=== PATIENT | female | born 1990 | race Caucasian/White ===

== ENCOUNTER 2017-11-24 19:17 | Emergency (ER) | END 2017-11-24 22:48 | disposition home or self-care (01) ==

== ENCOUNTER → 2018-04-06 | Outpatient (CLI) | END | disposition home or self-care (01) ==

== ENCOUNTER → 2018-04-11 | Outpatient (CLI) | END | disposition home or self-care (01) ==

== ENCOUNTER → 2018-05-18 | Outpatient (CLI) | END | disposition home or self-care (01) ==

== ENCOUNTER → 2018-06-20 | Outpatient (CLI) | END | disposition home or self-care (01) ==

== ENCOUNTER → 2018-07-31 | Outpatient (CLI) | END | disposition home or self-care (01) ==

== ENCOUNTER 2018-08-09 15:19 | Emergency (ER) | END 2018-08-09 16:52 | disposition home or self-care (01) ==

== ENCOUNTER 2018-08-09 16:44 | Outpatient (CLI) | END 2018-08-09 20:15 | disposition home or self-care (01) ==

== ENCOUNTER → 2018-08-10 | Outpatient (CLI) | END | disposition home or self-care (01) ==

== ENCOUNTER 2018-09-02 11:58 | Outpatient (CLI) | payer BC ==
[~2018-09-02] VITALS: Ht 165.1 cm; Wt 101.2 kg
[2018-09-02 13:46] VITALS: Ht 165.1 cm; Wt 101.2 kg
[2018-09-02 13:47] VITALS: BP 136/70; PULSE 96; RESP 18
== END 2018-09-02 14:58 | disposition home or self-care (01) ==
LOC: OBT 11:58 → L-D 11:58 → OBT 14:58
PROVIDERS: ATTEND Obstetrics & Gynecology
DX: O26.892 Other specified pregnancy related conditions, second trimester (principal); R23.3 Spontaneous ecchymoses; Z3A.26 26 weeks gestation of pregnancy
CPT/HCPCS: G0463

== ENCOUNTER 2018-09-02 14:59 | Emergency (ER) | payer BC ==
[~2018-09-02] VITALS: Wt 90.0 kg
[2018-09-02 15:02] VITALS: BP 132/71; PULSE 78; RESP 18
--- NOTE | 2018-09-02 16:41 | ERD ---
ER Documentation Chief Complaint Chief Complaint SKIN RASH TO FACE STARTED THIS MORNING 26 WEEKS LATER HPI 28-year-old female, at 26 weeks , already seen at L&D triage, presents to the emergency department, complaining of petechial facial rash after holding her head against her mouth while the patient was trying to avoid vomiting. The patient denies abdominal pain, no vaginal bleeding, no vaginal leakage, no concerns or complaints regarding her . ROS All systems reviewed and are negative except as per history of present illness. Medications Home Meds No Active Prescriptions or Reported Meds Allergies Allergies: Coded Allergies: No Known Allergy (Unverified , 09/02/18) PMhx/Soc Hx Miscellaneous Medical Probl: Yes (, ab1) Hx Alcohol Use: No Hx Substance Use: No Hx Tobacco Use: No Smoking Status: Never smoker Physical Exam Vitals Vital Signs Date Temp Pulse Resp B/P (MAP) Pulse Ox O2 O2 Flow FiO2 Time Delivery Rate 09/02/18 98.1 78 18 132/71 99 15:02 (91) Physical Exam Const: No acute distress Head: Atraumatic Eyes: Normal Conjunctiva ENT: Normal External Ears, Nose and Mouth. Neck: Full range of motion. No meningismus. Resp: Clear to auscultation bilaterally Cardio: Regular rate and rhythm, no murmurs Abd: Soft, non tender, non distended. Normal bowel sounds Skin: Multiple petechia in facial Malar area. back: No midline or flank tenderness Ext: No cyanosis, or edema Neur: Awake and alert Psych: Normal Mood and Affect Result Diagram: 09/02/18 1546 09/02/18 1546 Results 24 hrs Laboratory Tests Test 09/02/18 15:46 09/02/18 15:47 White Blood Count 8.6 10^3/ul Red Blood Count 3.13 10^6/ul Hemoglobin 9.6 g/dl Hematocrit 29.0 % Mean Corpuscular Volume 92.7 fl Mean Corpuscular Hemoglobin 30.7 pg Mean Corpuscular Hemoglobin Concent 33.1 g/dl Red Cell Distribution Width 11.9 % Platelet Count 287 10^3/UL Mean Platelet Volume 10.0 fl Immature Granulocytes % 0.600 % Neutrophils % 69.1 % Lymphocytes % 23.5 % Monocytes % 6.4 % Eosinophils % 0.2 % Basophils % 0.2 % Nucleated Red Blood Cells % 0.0 /100WBC Immature Granulocytes # 0.050 10^3/ul Neutrophils # 6.0 10^3/ul Lymphocytes # 2.0 10^3/ul Monocytes # 0.6 10^3/ul Eosinophils # 0.0 10^3/ul Basophils # 0.0 10^3/ul Nucleated Red Blood Cells # 0.0 10^3/ul Sodium Level 139 mmol/L Potassium Level 3.4 mmol/L Chloride Level 107 mmol/L Carbon Dioxide Level 26 mmol/L Anion Gap 6 Blood Urea Nitrogen 7 mg/dl Creatinine 0.47 mg/dl Est Glomerular Filtrat Rate mL/min > 60 mL/min Glucose Level 109 mg/dl Calcium Level 8.7 mg/dl Total Bilirubin 0.1 mg/dl Direct Bilirubin 0.00 mg/dl Indirect Bilirubin 0.1 mg/dl Aspartate Amino Transf (AST/SGOT) 18 IU/L Alanine Aminotransferase (ALT/SGPT) 14 IU/L Alkaline Phosphatase 78 IU/L Total Protein 6.3 g/dl Albumin 3.1 g/dl Globulin 3.20 g/dl Albumin/Globulin Ratio 0.96 Prothrombin Time 13.1 Sec Prothrombin Time Ratio 1.0 INR International Normalized Ratio 0.98 Activated Partial Thromboplast Time 27.5 Sec Procedures/MDM Differential diagnosis include but not limited to: Vascular event, viral exanthema, infectious process, eczema, contact dermatitis, insect bites suspicion for meningococcal rash. Physical examination and clinical presentation consistent most likely with traumatic petechia due to Valsalva maneuver. During the ED course the patient remained stable, no new complaints. Clinical impression discussed with mother who agrees with management. The patient is stable to be treated outpatient and will be discharged home with a Rx for acetaminophen, some side effects of prescribed medications (headache, rash, nausea, vomiting, diarrhea, interactions with other medications) were reviewed. The mother was instructed to follow up with the primary care provider in the next 48h. If symptoms persist, worsen or new symptoms develop, then patient should return to the ED immediately. Instructions explained and given directly by me to the patient with acknowledgment and demonstrated understanding. Disclaimer: Inadvertent spelling and grammatical errors are likely due to EHR/dictation software use and do not reflect on the overall quality of patient care. Also, please note that the electronic time recorded on this note does not necessarily reflect the actual time of the patient encounter. Departure Diagnosis: Primary Impression: Traumatic petechiae Additional Impressions: Rash and other nonspecific skin eruption Purpura associated with Valsalva maneuver Condition: Stable Additional Instructions: Thank you very much for allowing us to participate in your care. Your health and safety is our top priority at [facility]. Call your primary care doctor TOMORROW for an appointment during the next 2-4 days and bring all the information and medications prescribed. Have prescriptions filled and follow precisely the directions on the label. If the symptoms get worse and your provider is unavailable, return to the Emergency Department immediately. GAURI HERNÁNDEZ MD Sep 02, 2018 16:41
--- NOTE | 2018-09-03 21:03 | PN ---
Triage Information Date/Time 09/02/18 serviice rendered time Reason for visit: facial rash Weeks of Gestation 26w2d /Para A1 Diabetes: none Hypertention: none Objective Vital Signs Date Temp Pulse Resp B/P (MAP) Pulse Ox O2 O2 Flow FiO2 Time Delivery Rate 09/02/18 98.1 78 18 132/71 99 15:02 (91) Heart Rate: 140's Contractions: None Results/Medications Result Diagram: 09/02/18 1546 09/02/18 1546 Disposition: Assessment/Plan A IUP 26w2d petechiae on face P to ER for evaluation requested by her OB REBEL VALERIO MD Sep 03, 2018 21:03
== END 2018-09-02 16:53 | disposition home or self-care (01) ==
LOC: FTE 14:59
DX: O9A.212 Injury, poisoning and certain other consequences of external causes complicating pregnancy, second trimester (principal); S00.83XA Contusion of other part of head, initial encounter; D69.2 Other nonthrombocytopenic purpura; O99.112 Other diseases of the blood and blood-forming organs and certain disorders involving the immune mechanism complicating pregnancy, second trimester; X58.XXXA Exposure to other specified factors, initial encounter; Y92.9 Unspecified place or not applicable; Z3A.26 26 weeks gestation of pregnancy
CPT/HCPCS: 36415; 80053; 85025; 85610; 85730; 99283

== ENCOUNTER 2018-11-28 06:30 | Inpatient (IN) | payer BC ==
[~2018-11-28] VITALS: Ht 165.1 cm; Wt 105.6 kg
[2018-11-28 07:00] VITALS: Ht 165.1 cm; Wt 105.6 kg
[2018-11-28] MEDS ORDERED: OXYTOCIN 30 UNITS/LR 500 ML BAG IV ONE (07:00)
[2018-11-28 07:01] VITALS: BP 130/79; PULSE 86; RESP 17
[2018-11-28] MEDS ORDERED: LACTATED RINGER'S 1,000 ML IV SCH (07:02)
[2018-11-28] MEDS ORDERED: OXYTOCIN 30 UNITS/LR 500 ML IV SCH (07:30)
[2018-11-28] MEDS ORDERED: MISOPROSTOL 200 MCG TAB PR PRN ×2 (07:30→10:00)
[2018-11-28] MEDS ORDERED: CARBOPROST 250 MCG INJ IM PRN ×2 (07:30→10:00)
[2018-11-28] MEDS ORDERED: OXYTOCIN 30 UNITS/LR 500 ML IV PRN ×2 (07:30→10:00)
[2018-11-28] MEDS ORDERED: METHYLERGONOVINE 0.2 MG INJ IM PRN ×2 (07:30→10:00)
--- NOTE | 2018-11-28 07:31 | PREAC ---
Date/Time of Note Date/Time of Note DATE: 11/28/18 TIME: Anesthesia Eval and Record Evaluation Time Pre-Procedure Interview DATE: 11/28/18 TIME: : Age 28 Sex female NPO: 8 hrs Preoperative diagnosis IUP Planned procedure Csection Past Medical History Past Medical History: None Surgery & Anesthesia Issues No known issue Meds Anticoagulation: No Beta Bijan within 24 hr: No Reason Beta Bijan not given: Pt. not on B-Bijan No Active Prescriptions or Reported Meds Current Medications Lactated Ringer's 1,000 ml @ 125 mls/hr Q8H IV ; Start 11/28/18 at 07:02; Status UNV Cefazolin Sodium/ Dextrose 50 ml @ 100 mls/hr ONCE IVPB ; Start 11/28/18 at 07:30; Status UNV Oxytocin/Lactated Ringer's 500 ml @ 125 mls/hr POST IV ; Start 11/28/18 at 07:30; Status UNV Oxytocin/Lactated Ringer's 500 ml @ 0 mls/hr ONCE PRN IV .VAGINAL BLEEDING; Start 11/28/18 at 07:30; Status UNV Methylergonovine Maleate (Methergine) 0.2 mg ONCE PRN IM .VAGINAL BLEEDING; Start 11/28/18 at 07:30; Status UNV Carboprost Tromethamine (Hemabate) 250 mcg ONCE PRN IM .VAGINAL BLEEDING; Start 11/28/18 at 07:30; Status UNV Misoprostol (Cytotec) 1,000 mcg ONCE PRN WA .VAGINAL BLEEDING; Start 11/28/18 at 07:30; Status UNV Meds reviewed: Yes Allergies Coded Allergies: No Known Allergy (Unverified , 09/02/18) Allergies Reviewed: Yes Labs/Studies Labs Reviewed: Reviewed by anesthesiologist test: Positive Studies: ECG Pre-procedure Exam Last vitals Vital Signs Date Temp Pulse Resp B/P (MAP) Pulse Ox O2 O2 Flow FiO2 Time Delivery Rate 11/28/18 98.4 86 17 130/79 Room Air 07:01 (96) Airway: Adequate mouth opening, Adequate thyromental dist Mallampati: Mallampati II Teeth: Normal Lung: Normal Heart: Normal ASA Physical Status ASA physical status: 2 Emergency: None Planned Anesthetic Neuraxial: Epidural Planned Pain Management Epidural, Parenteral pain med Pre-operative Attestations Prior to commencing anesthesia and surgery, the patient was re-evaluated, there was verification of: *The patient's identity *The results of appropriate recent lab work and preoperative vital signs *The above evaluation not changing prior to induction *Anesthetic plan, risk benefits, alternative and complications discussed with patient/family; questions answered; patient/family understands, accepts and wishes to proceed. MALLORIE JONES MD Nov 28, 2018 07:31
[2018-11-28] MEDS ORDERED: CEFAZOLIN 2 GM/50 ML (PMX) 50 ML IVPB SCH (08:00)
[2018-11-28] MEDS ORDERED: morphine SULFATE/PF (10 MG/10 ML) INJ ONE (08:06)
[2018-11-28] MEDS ORDERED: ONDANSETRON 4 MG INJ ONE ×2 (08:06→09:34)
[2018-11-28] MEDS ORDERED: OXYTOCIN 10 UNIT INJ ONE (08:06)
[2018-11-28] MEDS ORDERED: PHENYLephrine (100 MCG/ML) 5ML SYG ONE (08:38)
[2018-11-28] MEDS ORDERED: PHENYLephrine (100 MCG/ML) 10ML SYG ONE (09:34)
[2018-11-28] MEDS ORDERED: METOCLOPRAMIDE 10 MG INJ ONE (09:34)
[2018-11-28] MEDS ORDERED: PHENYLephrine 10 MG INJ ONE (09:34)
--- NOTE | 2018-11-28 09:41 | OPR ---
Operative Report Planned Procedure Procedure date Nov 28, 2018 Procedure(s) Repeat Performed by see signature line Patent Leather Sorter: REBEL VALERIO MD Anesthesiologist: MALLROIE JONES MD Pre-procedure diagnosis IUP at 39 weeks. Previous x 1. [id number] Anesthesia Type: Rvmbw1i spinal Post-Procedure Post-procedure diagnosis Same. Findings Viable baby girl weighing 3920 grams or 8# 10 oz, 20" long, and with Apgars of 9/9. Estimated Blood Loss: 500 - 600 mls Specimen(s) none Grafts/Implant(s) none Complication(s) none Pt Condition post procedure: stable Disposition: PACU Procedure Description Under satisfactory spinal anesthesia, the patient was prepped and draped and placed in a supine position, tilted to the left. Pfannenstiel incision was made in an elliptical manner to remove the old scar, and carried through the subcutaneous tissue. Bleeders brought under control with electrocautery. Fascia incised to the length of the incision. Rectus muscles from the fascia, divided midline. Peritoneum exposed, entered through a transverse incision. Transverse incision was made in the lower segment of the uterus. Amniotic sac ruptured. Clear amniotic fluid noted. The head was elevated up through the incision and with fundal pressure was delivered. The mouth and nares were bulb suctioned. The rest of the baby was then easily delivered. The cord was doubly clamped and cut after 30 seconds. The baby was brought to the warmer and the team for immediate attention. The placenta was delivered manually intact. Uterine cavity was cleaned with wet sponge and drainage established. Uterus closed in 2 layers using #1 chromic in continuous fashion. Peritoneal cavity irrigated with warm saline. Sponge, needle and instrument count reported to be correct. Abdominal peritoneum closed with 2-0 Chromic continuously. Rectus muscle approximated with the same suture. Fascia closed with 0-Vicryl. The subcutaneous tissue was irrigated and closed with 2-0 Chromic and skin was closed with 3-0 Monocryl in a subcuticular stitch. Steristrips with Mastosol were placed. Estimated blood loss 500 mL. Urine was clear. REN GAITAN MD Nov 28, 2018 09:41
--- NOTE | 2018-11-28 09:54 | PAC ---
Date/Time of Note Date/Time of Note DATE: 11/28/18 TIME: 09:52 Post-Anesthesia Notes Post-Anesthesia Note Last documented vital signs Vital Signs Date Temp Pulse Resp B/P (MAP) Pulse Ox O2 O2 Flow FiO2 Time Delivery Rate 11/28/18 98.4 86 17 130/79 Room Air 07:01 (96) Activity: WNL Respiratory function: WNL Cardiovascular function: WNL Mental status: Baseline Pain reasonably controlled: Yes Hydration appropriate: Yes Nausea/Vomiting absent: Yes Comments BP:112/56, P:78, Spo2:100%, T:98,8 MALLORIE JONES MD Nov 28, 2018 09:54
[2018-11-28] MEDS ORDERED: NACL 0.9% 3 ML SYG IV SCH (10:00)
[2018-11-28] MEDS ORDERED: OXYCODONE/ACETAMINOPHEN (5/325) TAB PO PRN (10:00)
[2018-11-28] MEDS ORDERED: NALOXONE (0.4 MG/ML) INJ IV PRN (10:00)
[2018-11-28] MEDS ORDERED: DIPHENHYDRAMINE 50 MG INJ IV PRN (10:00)
[2018-11-28] MEDS ORDERED: ONDANSETRON 4 MG INJ IV PRN (10:00)
[2018-11-28] MEDS ORDERED: morphine 2 MG INJ IV PRN (10:00)
[2018-11-28] MEDS: OXYTOCIN 30 UNITS/LR 500 ML IV SCH ×2 (10:40→19:28)
[2018-11-28 13:20] VITALS: BP 133/60; PULSE 76; RESP 18
--- NOTE | 2018-11-28 14:33 | HP ---
Date/Time of Note Date/Time of Note DATE: 11/28/18 TIME: 14:31 OB - History Hx of Present Free Text/Dictation 28 y.o. A1 with an IUP at 39 weeks here for a scheduled repeat . Estimated Due Date: Dec 05, 2018 : 3 Para: 1 Spontaneous : 1 Care: Good Care Ultrasounds: Normal mid trimester US Obstetrical Complications: None Medical Complications: None Past Family/Social History * Past Medical, Surgical, Family and Obstetric Histories reviewed from chart. Blood Type: O+ Rubella: immune RPR/VDRL: Negative GBS Status: Positive HBsAG: Negative OB Admission Exam Vital Signs Vital Signs Vital Signs Date Temp Pulse Resp B/P (MAP) Pulse Ox O2 O2 Flow FiO2 Time Delivery Rate 11/28/18 98.4 86 17 130/79 Room Air 07:01 (96) Physical Exam HEENT: WNL Heart: Rhythm Normal Lungs: Clear Abdomen: WNL Extremities: Normal Reflexes: Normal Cervical Dilatation: None Effacement: 0% Station: -3 Membranes: Intact Amniotic Fluid: Clear Heart Rate: 140's Accelerations: Accelerations Present Decelerations: No Decelerations Varibility: Moderate Contractions on Admission: None Last 72 hours Lab Results CBC & BMP 11/28/18 06:45 OB Assessment/Plan Reason for admission: section Plan: Section (Repeat) REN GAITAN MD Nov 28, 2018 14:33
[2018-11-28] MEDS: KETOROLAC 30 MG INJ IV PRN (14:54)
[2018-11-28 16:00] VITALS: BP 130/62; PULSE 72; RESP 18
[2018-11-28 20:00] VITALS: BP 124/69; PULSE 77; RESP 19
[2018-11-29] VITALS: BP 128/72; PULSE 82; RESP 17
[2018-11-29] MEDS: LACTATED RINGER'S 1,000 ML IV SCH ×2 (03:21→11:30)
[2018-11-29 04:16] VITALS: BP 123/63; PULSE 77; RESP 18
[2018-11-29] MEDS: KETOROLAC 30 MG INJ IV PRN (05:45)
[2018-11-29 08:00] VITALS: BP 126/61; PULSE 76; RESP 18
[2018-11-29] MEDS: LANOLIN HPA 1 PKT TOP PRN (12:38)
[2018-11-29] MEDS: OXYCODONE/ACETAMINOPHEN (5/325) TAB PO PRN ×2 (12:39→20:00)
[2018-11-29] MEDS: IBUPROFEN 800 MG TAB PO SCH ×2 (14:52→21:34)
[2018-11-29 16:00] VITALS: BP 117/53; PULSE 79; RESP 18
[2018-11-29 19:40] VITALS: BP 128/63; PULSE 73; RESP 19
--- NOTE | 2018-11-29 19:48 | QN ---
Documentation Comment POD #1 Pt feels well. Is eating a regular diet, has voided and has the IV and choe out and is ambulating. All is well except the baby has not been latching on well. The nurse is present to help her out. T=98.9 BP 126/61 Abdomen soft, NT, Telfa pad present on a clean, dry and intact incision. Lochia minimal. Ext NT, b/l equal 2+ edema. P: Cont care and training needs to be a priority. REN GAITAN MD Nov 29, 2018 19:48
[2018-11-30] MEDS ORDERED: DIPHENHYDRAMINE 25 MG CAP PO PRN (00:30)
[2018-11-30 04:00] VITALS: BP 129/61; PULSE 76; RESP 19
[2018-11-30] MEDS: traMADol 50 MG TAB PO PRN ×4 (06:38→21:11)
[2018-11-30 08:00] VITALS: BP 126/69; PULSE 82; RESP 18
[2018-11-30 15:49] VITALS: BP 131/78; PULSE 83; RESP 18
[2018-11-30 20:00] VITALS: BP 143/72; PULSE 84; RESP 18
[2018-11-30] MEDS: LANOLIN HPA 1 PKT TOP PRN (21:10)
--- NOTE | 2018-12-01 | QN ---
Documentation Comment POD #2 Pt had a rough night as repeatedly told the nurse her throat was closing as though she was having an allergic reaction so we took her off the only medications she was on which were Motrin and Percocet and she was placed on Tramadol. The Tramadol has been moderately effective and now the pt describes her throat as just being very sore. Pt is now much easier with a nipple shield. + flatus. T- 98.4 BP 131/78 Throat is not red or swollen. Abdomen soft, ND. Incision is clean, dry and intact. Ext NT, 1-2 + edema. P: Continue care. REN GAITAN MD Dec 01, 2018 00:00
[2018-12-01] MEDS: traMADol 50 MG TAB PO PRN ×2 (03:40→09:19)
[2018-12-01 03:50] VITALS: BP 147/75; PULSE 83; RESP 19
[2018-12-01 06:23] VITALS: BP 147/74; RESP 18
[2018-12-01 09:00] VITALS: BP 133/60; PULSE 80; RESP 20
[2018-12-01] MEDS ORDERED: DIPHTH/TET/ACEL PERTUSS (ADULT) 0.5 ML VIAL IM* ONE (09:00)
--- NOTE | 2018-12-01 14:32 | PD.PPDC ---
PROJECT MANAGEMENT PROFESSOR Discharge Instruction Condition [id number] Patient Condition: Wrbge4u Good Diet Vtvvv1Mf Diet: Ihrwe8r Resume Regular Diet Activity/Restrictions [id number] Activity: Qfkjh0h Bedrest May be up to bathroom May be up for meals May Shower Crdqo1Sb Restrictions: Xvsgj4s No Exercising No Lifting No Driving Minimize Walking Minimize Stair-climbing No Sexual Activity Nothing in the Vagina No [place] No Tampons, douche Wound/Drain Care Instructions [id number] Wound/Drain Care Jqkfv9m Remove Steri Strips in 2 Instructions: weeks Keep clean and dry Follow-up Follow-up with Physician: 2, Week/Weeks Return to clinic for [id number] ADMINISTRATOR Instructions: Gpdqp4p Fever greater than 101 Chills Worsening abdominal pain Excessive Vaginal Bleeding Nuxcd1Fw OB Instructions: Auadv9n Breast Tenderness Depression Fovid1Nz Surgical Instructions: Uewco2v Incisional Drainage Incisional Redness REN GAITAN MD Dec 01, 2018 14:32
[2018-12-01] MEDS ORDERED: TRAM50TA2 PO (14:33)
--- NOTE | 2018-12-01 14:37 | DS ---
Date/Time of Note Date/Time of Note DATE: 12/01/18 TIME: 14:35 Obstetrical Discharge Record Final Diagnosis Final Diagnosis: Term delivered Section Section: Repeat Complications Augmentation: No Induction: No Condition on Discharge Physical Assessment Last Vitals: T=98.2 BP 133/60 Voiding: Yes Bowel Movement: Yes Breast: Filling Fundus: Firm Abdomen and Incision: Clean, intact, dry. Calf Tenderness: No Patient Condition: Good REN GAITAN MD Dec 01, 2018 14:37
--- NOTE | 2018-12-02 18:05 | DELSUM ---
Delivery Summary A-C Datetime Report Generated by N: 12/02/2018 18:05 DELIVERY PERSONNEL Display Coordinator: Gama, Aga (Annotations: Data stored by [facility] on behalf of user) MATERNAL INFORMATION Delivery Anesthesia: Spinal Medications in Delivery: SEE ANESTHESIA RECORDS Delivery QBL (ml): 600 Placenta Cultured: No Maternal Complications: None LABOR SUMMARY EDC: 12/05/2018 00:00 No. Babies in Womb: 1 Attempted: No Labor Anesthesia: None LABOR INFORMATION Reason for Induction: Not Applicable Oxytocin: N/A Group B Beta Strep: Positive Antibiotics # of Doses: 1 Steroids Given: None Reason Steroids Not Administered: Not Applicable MEMBRANES Membranes Rupture Method: Artificial Rupture of Membranes: 11/28/2018 08:42 Length of Rupture (hr): 0.02 Amniotic Fluid Color: Clear Amniotic Fluid Amount: Moderate Amniotic Fluid Odor: None STAGES OF LABOR Stage 3 hr: 0 Stage 3 min: 1 CSECTION DELIVERY Primary Indication: Repeat Elective Secondary Indication: N/A CSection Urgency: Non Elective CSection Incidence: Repeat Labor: No Labor Elective: N/A CSection Incision: Lower Uterine Transverse BABY A INFORMATION Delivery Date/Time: 11/28/2018 08:43 Method of Delivery: Born in Route : No : N/A Forceps: N/A Vacuum Extraction: N/A Shoulder Dystocia : N/A SHOULDER DYSTOCIA BABY A Delivery Date/Time: 11/28/2018 08:43 PRESENTATION/POSITION BABY A Presentation: Cephalic Cephalic Presentation: Vertex Vertex Position: Left Occipital Anterior Breech Presentation: N/A PLACENTA INFORMATION BABY A Placenta Delivery Time : 11/28/2018 08:44 Placenta Method of Delivery: Manual Removal Placenta Status: Delivered SCORES BABY A Heart Rate 1 min: >100 bpm Resp Effort 1 min: Good Cry Reflex Irritability 1 min: Cough/Sneeze/Pulls Away Muscle Tone 1 min: Active Motion Color 1 min: Body [place], Extremit Blue Resuscitation Effort 1 min: Tactile Stimulation SCORE 1 MIN: 9 Heart Rate 5 min: >100 bpm Resp Effort 5 min: Good Cry Reflex Irritability 5 min: Cough/Sneeze/Pulls Away Muscle Tone 5 min: Active Motion Color 5 min: Body [place], Extremit Blue Resuscitation Effort 5 min: Tactile Stimulation SCORE 5 MIN: 9 INFANT INFORMATION BABY A Gestational Age at Delivery: 39.0 Gestational Status: Full Term- 39- 40.6 Weeks Outcome : Liveborn Infant Condition : Stable Infant Sex: Female IDENTIFICATION/MEDS BABY A ID Band Number: [id number] ID Band Location: Right Leg; Left Arm Sensor Applied: Yes Sensor Number: [id number] Sensor Location : Cord Clamp Vitamin K Given : Not Given Erythromycin Given: Not Given WEIGHT/LENGTH BABY A Birthweight (gm): 3920 Infant Weight (lb): 8 Infant Weight (oz): 10 Infant Length (in): 20.00 Infant Length (cm): 50.80 CORD INFORMATION BABY A No. Cord Vessels: 3 Nuchal Cord : Around Neck x1, Loose Cord Blood Taken: Yes Suction: Mouth; Nose ASSESSMENT BABY A Infant Complications: None Physical Findings at Delivery: Within Normal Limits Infant Respirations: Appears Normal Duct Layer/ALS Called : No Care By: ELVIS Beckford RN Transferred To: Remains with Mother
== END 2018-12-01 15:00 | disposition home or self-care (01) | DRG 788 ==
LOC: L-D 06:30 → PP1 13:20
PROVIDERS: ADMIT Obstetrics & Gynecology; ATTEND Obstetrics & Gynecology
PROC: 10D00Z1 Extraction of Products of Conception, Low, Open Approach (ICD-10-PCS; principal; 2018-11-28 07:30)
DX: O34.211 Maternal care for low transverse scar from previous cesarean delivery (principal); Z3A.39 39 weeks gestation of pregnancy; Z37.0 Single live birth
CPT/HCPCS: 85025; 85610; 85730; 86592; 86850; 86900; 86901; 90715; 99464; J0690; J1200; J1885; J2274; J2370; J2405; J2590; J2765; J7120